=== PATIENT | female | born 1940 | race Caucasian/White ===

== ENCOUNTER 2017-08-10 05:41 | Inpatient (IN) | payer MEDICARE, OTHER ==
[2017-08-03 11:49] LABS: BASOPHILS % (AUTO) 0.6 % (0-1); EOSINOPHILS # (AUTO) 0.1 X10'3 (0-0.9); EOSINOPHILS % (AUTO) 1.7 % (0-6); LYMPHOCYTES # (AUTO) 1.8 X10'3 (1.1-4.8); LYMPHOCYTES % (AUTO) 30.1 % (21-51); MEAN CORPUSCULAR HEMOGLOBIN 31.7 PG (27.0-31.0); MEAN CORPUSCULAR HGB CONC 35.6 % (33.0-36.5); MEAN PLATELET VOLUME 6.6 FL (7.4-10.4); MONOCYTES # (AUTO) 0.4 X10'3 (0-0.9); MONOCYTES % (AUTO) 7.3 % (2-12); NEUTROPHILS # (AUTO) 3.6 X10'3 (1.8-7.7); NEUTROPHILS % (AUTO) 60.3 % (42-75); PRE OP HEMATOCRIT 39.8 % (35.0-45.0); PRE OP HEMOGLOBIN 14.2 g/dL (12.0-16.0); PRE OP PLATELET COUNT 286 X10'3 (140-440); RED BLOOD COUNT 4.47 X10'6 (4.20-5.60); RED CELL DISTRIBUTION WIDTH 13.5 % (11.5-14.5)
[2017-08-03 12:06] LABS: ALBUMIN 4.1 G/DL (3.4-5.0); ALBUMIN/GLOBULIN RATIO 1.2 (1.1-1.5); ALKALINE PHOSPHATASE 86 IU/L (46-116); BLOOD UREA NITROGEN 22 MG/DL (7-18); BUN/CREATININE RATIO 32.8 (6.6-38.0); CALCIUM 9.5 MG/DL (8.5-10.1); CHLORIDE 105 MMOL/L (99-107); CREATININE 0.67 MG/DL (0.40-0.90); PRE OP ALT 64 U/L (30-65); PRE OP ANION GAP 6 (8-16); PRE OP AST 35 U/L (10-37); PRE OP BILIRUB, TOTAL 0.4 MG/DL (0.0-1.0); PRE OP GLUCOSE 115 MG/DL (70-104); PRE OP POTASSIUM 4.1 MMOL/L (3.4-5.1); PRE OP SODIUM 143 MMOL/L (135-145); TOTAL CARBON DIOXIDE 31.6 MMOL/L (24-32); TOTAL PROTEIN 7.6 G/DL (6.4-8.2); eGFR 86 ML/MIN
[2017-08-04 09:06] LABS: CLARITY,URINE CLOUDY (Clear); COLOR,URINE YELLOW (Yellow); GLUCOSE, URINE NEGATIVE (Neg); KETONES,URINE NEGATIVE (Neg); LEUKOCYTE ESTERASE ,URINE LARGE (Neg); NITRITES, URINE POSITIVE (Neg); OCCULT BLOOD,URINE TRACE-INTACT (Neg); PH,URINE 7.5 (4.8-8.0); PROTEIN,URINE 30 mg/dl (Neg)
[2017-08-04 09:07] LABS: UA COLLECTION TYPE NON-SPECIFIED
[2017-08-04 09:13] LABS: BACTERIA,URINE 3+ /HPF (Neg); SQUAMOUS EPITHELIAL CELL,UR FEW /LPF (FEW); WBC,URINE TNTC /HPF (0-4)
[2017-08-04 09:14] LABS: RBC,URINE 0-2 /HPF (0-2)
[~2017-08-10] VITALS: Ht 170.2 cm; Wt 69.0 kg
[2017-08-10] VITALS (18 sets, daily range): BP systolic 99–138; BP diastolic 50–96
[~2017-08-10 05:41] MED LIST: ASPI-845 PO; DOCU-282 PO; ENAL10TA78 PO; MULT-38 PO; NAPR220C15 PO; PRIM250T48 PO; SIMV20TA5 PO; VENL-191 PO; acetaminophen 325mg tablet PO ONE; cefazolin/dext.iso 2gm/50ml 50 ML IV ONE; celeCOXIB 100mg capsule PO ONE; famotidine 20mg tablet PO ONE; gabapentin 300mg capsule PO ONE; metoclopramide 5 mg/ml inj IV ONE; ringers solution, lacted 1,000 ML IV SCH; tranexamic acid inj. 1,000 MG in normal saline 100ml IV soln 90 ML IV ONE; vancomycin inj 1,500 MG in normal saline 300ml IV soln IV ONE
[2017-08-10] MEDS ORDERED: LIDOcaine 1% (10mg/ml) 2ml vial ONE (06:26)
[2017-08-10] MEDS ORDERED: tetracaine 1% (10mg/ml) pres. free inj. ONE (07:11)
[2017-08-10] MEDS ORDERED: MIDAZolam 1mg/ml 10ml vial ONE (07:13)
[2017-08-10] MEDS ORDERED: fentaNYL/PF 50MCG/1 ML 2ML syringe ONE (07:14)
[2017-08-10] MEDS ORDERED: MORPHINE SULFATE/PF 0.5 MG/ML 10ML AMPUL ONE (07:14)
[2017-08-10] MEDS ORDERED: ringers solution, lacted 1,000 ML IV SCH (07:17)
[2017-08-10] MEDS ORDERED: hydrALAZINE 20mg/ml inj. IV PRN (07:20)
[2017-08-10] MEDS ORDERED: ondansetron/PF 4mg/2ml inj IV PRN ×3 (07:20→09:15)
[2017-08-10] MEDS ORDERED: fentaNYL/PF 50MCG/1 ML 2ML syringe IV PRN ×2 (07:20)
[2017-08-10] MEDS ORDERED: morphine 2 MG/ML inj. syringe IV PRN ×2 (07:20)
[2017-08-10] MEDS ORDERED: labetalol 5mg/ml 20ml inj. IV PRN (07:20)
[2017-08-10] MEDS ORDERED: diphenhydrAMINE 50 mg/ml inj IV PRN (08:10)
[2017-08-10] MEDS ORDERED: ketorolac trometh. 30mg/ml inj. ONE (08:11)
[2017-08-10] MEDS ORDERED: epiNEPHrine 1 mg/ml inj ONE (08:11)
[2017-08-10] MEDS ORDERED: vancomycin 1,000mg inj ONE (08:12)
[2017-08-10] MEDS ORDERED: cloNIDine hcl/PF 100mcg/ml inj ONE (08:12)
[2017-08-10] MEDS ORDERED: ROPIVAcaine 0.5% (5mg/ml) 30ml vial ONE (08:12)
[2017-08-10] MEDS ORDERED: ePHEDrine 50MG/ML INJ. ONE (08:16)
[2017-08-10] MEDS ORDERED: magnesium hydroxide 30ml (MOM) UD suspension PO PRN (09:15)
[2017-08-10] MEDS ORDERED: HYDROmorphone 1 mg/ml syringe IV PRN ×2 (09:15)
[2017-08-10] MEDS ORDERED: HYDROcodone/acetaminophen 10/325mg tab PO PRN (09:15)
[2017-08-10] MEDS ORDERED: bisacodyl 10mg suppository rectal RC PRN (09:15)
[2017-08-10] MEDS ORDERED: diphenhydrAMINE 25mg capsule PO PRN ×2 (09:15)
[2017-08-10] MEDS ORDERED: HYDROmorphone inj. 0.5 MG/0.5 ML DISP.SYRIN IV PRN (10:18)
[2017-08-10] MEDS: potassium cl 20mEq in 1/2 NS 1,000 ML IV SCH ×2 (13:25→17:11)
[2017-08-10] MEDS: gabapentin 300mg capsule PO SCH ×2 (17:22→20:22)
[2017-08-10] MEDS: cefazolin 1gm/NS 100mL 100 ML IV SCH (17:24)
[2017-08-10] MEDS ORDERED: vancomycin/NS 1 GM ADD-VANTAGE 250 ML IV SCH (20:00)
[2017-08-10] MEDS: venlafaxine 37.5mg tablet PO SCH (20:23)
[2017-08-10] MEDS: ascorbic acid 500mg tablet PO SCH (20:23)
[2017-08-10] MEDS: docusate sod 100mg capsule PO SCH (20:23)
[2017-08-10] MEDS: sennosides 8.6mg tablet PO SCH (20:24)
[2017-08-10] MEDS: lisinopril 5mg tablet PO SCH (20:25)
[2017-08-10] MEDS: atorvastatin 10mg tablet PO SCH (20:25)
[2017-08-10] MEDS ORDERED: aspirin 325mg tablet, delayed-release (Ecotrin) PO SCH (21:00)
[2017-08-11] VITALS (8 sets, daily range): BP systolic 108–152; BP diastolic 47–63
[2017-08-11] MEDS: cefazolin 1gm/NS 100mL 100 ML IV SCH (00:11)
[2017-08-11] MEDS: potassium cl 20mEq in 1/2 NS 1,000 ML IV SCH ×3 (00:14→17:12)
[2017-08-11 05:10] LABS: BASOPHILS % (AUTO) 0.4 % (0-1); EOSINOPHILS # (AUTO) 0.1 X10'3 (0-0.9); EOSINOPHILS % (AUTO) 1.5 % (0-6); HEMATOCRIT 33.9 % (35.0-45.0); HEMOGLOBIN 11.7 g/dl (12.0-16.0); LYMPHOCYTES # (AUTO) 1.5 X10'3 (1.1-4.8); LYMPHOCYTES % (AUTO) 26.5 % (21-51); MEAN CORPUSCULAR HEMOGLOBIN 31.6 PG (27.0-31.0); MEAN CORPUSCULAR HGB CONC 34.7 % (33.0-36.5); MEAN CORPUSCULAR VOLUME 91.3 FL (78-98); MEAN PLATELET VOLUME 7.7 FL (7.4-10.4); MONOCYTES # (AUTO) 0.6 X10'3 (0-0.9); MONOCYTES % (AUTO) 9.8 % (2-12); NEUTROPHILS # (AUTO) 3.5 X10'3 (1.8-7.7); NEUTROPHILS % (AUTO) 61.8 % (42-75); PLATELET COUNT 193 X10'3 (140-440); RED BLOOD COUNT 3.71 X10'6 (4.20-5.60); WHITE BLOOD COUNT 5.6 X10'3 (4.5-11.0)
[2017-08-11 06:34] LABS: ANION GAP 10 (8-16); CHLORIDE 108 MMOL/L (99-107); POTASSIUM 4.2 MMOL/L (3.5-5.1); SODIUM 143 MMOL/L (135-145); TOTAL CARBON DIOXIDE 24.7 MMOL/L (24-32)
[2017-08-11] MEDS: gabapentin 300mg capsule PO SCH ×3 (09:30→21:07)
[2017-08-11] MEDS: aspirin 325mg tablet PO SCH (09:30)
[2017-08-11] MEDS: multivitamins, therapeutics tablet PO SCH (09:30)
[2017-08-11] MEDS: ascorbic acid 500mg tablet PO SCH ×2 (09:30→21:07)
[2017-08-11] MEDS: primidone 50mg tablet PO SCH (09:31)
[2017-08-11] MEDS: acetaminophen 325mg tablet PO PRN (11:03)
[2017-08-11] MEDS: Protein Shake (high protein) 240ml (8oz) cup PO SCH ×2 (13:20→18:00)
[2017-08-11] MEDS: HYDROcodone/acetaminophen 10/325mg tab PO PRN ×2 (16:13→21:07)
[2017-08-11] MEDS: lisinopril 5mg tablet PO SCH (21:01)
[2017-08-11] MEDS: docusate sod 100mg capsule PO SCH (21:07)
[2017-08-11] MEDS: atorvastatin 10mg tablet PO SCH (21:07)
[2017-08-11] MEDS: sennosides 8.6mg tablet PO SCH (21:07)
[2017-08-11] MEDS: venlafaxine 37.5mg tablet PO SCH (21:07)
[2017-08-12] MEDS: potassium cl 20mEq in 1/2 NS 1,000 ML IV SCH (01:11)
[2017-08-12 06:00] VITALS: BP 129/52
[2017-08-12 06:51] LABS: BASOPHILS % (AUTO) 0.3 % (0-1); EOSINOPHILS # (AUTO) 0.1 X10'3 (0-0.9); EOSINOPHILS % (AUTO) 1.5 % (0-6); HEMATOCRIT 33.7 % (35.0-45.0); LYMPHOCYTES # (AUTO) 1.6 X10'3 (1.1-4.8); MEAN CORPUSCULAR HEMOGLOBIN 31.9 PG (27.0-31.0); MEAN CORPUSCULAR HGB CONC 35.4 % (33.0-36.5); MEAN PLATELET VOLUME 7.6 FL (7.4-10.4); MONOCYTES # (AUTO) 0.8 X10'3 (0-0.9); MONOCYTES % (AUTO) 11.4 % (2-12); NEUTROPHILS # (AUTO) 4.7 X10'3 (1.8-7.7); NEUTROPHILS % (AUTO) 64.8 % (42-75); PLATELET COUNT 194 X10'3 (140-440); RED BLOOD COUNT 3.75 X10'6 (4.20-5.60); RED CELL DISTRIBUTION WIDTH 13.5 % (11.5-14.5); WHITE BLOOD COUNT 7.3 X10'3 (4.5-11.0)
[2017-08-12] MEDS: HYDROcodone/acetaminophen 10/325mg tab PO PRN ×2 (07:24→23:19)
[2017-08-12] MEDS: primidone 50mg tablet PO SCH (09:25)
[2017-08-12] MEDS: multivitamins, therapeutics tablet PO SCH (09:25)
[2017-08-12] MEDS: gabapentin 300mg capsule PO SCH ×3 (09:25→20:39)
[2017-08-12] MEDS: ascorbic acid 500mg tablet PO SCH ×2 (09:25→20:37)
[2017-08-12] MEDS: aspirin 325mg tablet PO SCH (09:25)
[2017-08-12 10:00] VITALS: BP 113/39
[2017-08-12] MEDS: Protein Shake (high protein) 240ml (8oz) cup PO SCH ×3 (12:46→18:00)
[2017-08-12] MEDS: acetaminophen 325mg tablet PO PRN (12:47)
[2017-08-12 18:00] VITALS: BP 110/55
[2017-08-12] MEDS: sennosides 8.6mg tablet PO SCH (20:37)
[2017-08-12] MEDS: docusate sod 100mg capsule PO SCH (20:37)
[2017-08-12] MEDS: venlafaxine 37.5mg tablet PO SCH (20:38)
[2017-08-12] MEDS: lisinopril 5mg tablet PO SCH (20:38)
[2017-08-12] MEDS: atorvastatin 10mg tablet PO SCH (20:39)
[2017-08-12 22:00] VITALS: BP 125/64
[2017-08-13 05:56] VITALS: BP 97/56
[2017-08-13 06:34] LABS: BASOPHILS % (AUTO) 0.3 % (0-1); EOSINOPHILS # (AUTO) 0.1 X10'3 (0-0.9); EOSINOPHILS % (AUTO) 1.8 % (0-6); HEMATOCRIT 32.4 % (35.0-45.0); HEMOGLOBIN 11.3 g/dl (12.0-16.0); LYMPHOCYTES # (AUTO) 1.9 X10'3 (1.1-4.8); LYMPHOCYTES % (AUTO) 24.1 % (21-51); MEAN CORPUSCULAR HEMOGLOBIN 31.9 PG (27.0-31.0); MEAN CORPUSCULAR HGB CONC 34.9 % (33.0-36.5); MEAN CORPUSCULAR VOLUME 91.4 FL (78-98); MONOCYTES # (AUTO) 0.8 X10'3 (0-0.9); MONOCYTES % (AUTO) 10.7 % (2-12); NEUTROPHILS % (AUTO) 63.1 % (42-75); PLATELET COUNT 219 X10'3 (140-440); RED BLOOD COUNT 3.54 X10'6 (4.20-5.60); RED CELL DISTRIBUTION WIDTH 13.2 % (11.5-14.5)
[2017-08-13 07:13] VITALS: BP 107/56
[2017-08-13] MEDS: aspirin 325mg tablet PO SCH (08:03)
[2017-08-13] MEDS: gabapentin 300mg capsule PO SCH ×2 (08:03→12:34)
[2017-08-13] MEDS: ascorbic acid 500mg tablet PO SCH (08:03)
[2017-08-13] MEDS: multivitamins, therapeutics tablet PO SCH (08:04)
[2017-08-13] MEDS: Protein Shake (high protein) 240ml (8oz) cup PO SCH ×2 (08:04→12:36)
[2017-08-13] MEDS: primidone 50mg tablet PO SCH (08:04)
[2017-08-13] MEDS: HYDROcodone/acetaminophen 10/325mg tab PO PRN (12:34)
== END 2017-08-13 13:45 | DRG 470 ==
LOC: PAS IN 05:41 → EDSTATUS 07:30 → ORTHO 4S 10:15 → EDSTATUS 13:00
PROVIDERS: ADMIT Orthopaedic Surgery; ATTEND Orthopaedic Surgery
PROC: 0SRB06Z Replacement of Left Hip Joint with Oxidized Zirconium on Polyethylene Synthetic Substitute, Open Approach (ICD-10-PCS; principal; 2017-08-10 07:15)
DX: M16.0 Bilateral primary osteoarthritis of hip (principal); D62 Acute posthemorrhagic anemia; E78.5 Hyperlipidemia, unspecified; I10 Essential (primary) hypertension; R25.1 Tremor, unspecified; M19.012 Primary osteoarthritis, left shoulder; M75.122 Complete rotator cuff tear or rupture of left shoulder, not specified as traumatic; F32.9 Major depressive disorder, single episode, unspecified; Z90.710 Acquired absence of both cervix and uterus; Z79.82 Long term (current) use of aspirin; Z88.5 Allergy status to narcotic agent
CPT/HCPCS: 36415; 71046; 72170; 80051; 80053; 81001; 85025; 86885; 86900; 86901; 87070; 87077; 87088; 87186; 93005; 97110; 97116; 97161; 97530; A4615; A6449; A7000; C1758; C1776; J0171; J0690; J0735; J1170; J1885; J2250; J2274; J2765; J2795; J3010; J3370; J3490; J7030; J7120

== ENCOUNTER 2019-04-25 06:17 | Emergency (ER) | payer MEDICARE, OTHER ==
[~2019-04-25 06:17] MED LIST changes: -PRIM250T48 PO; +PRIM250T8 PO; +SIMV-42 PO; -SIMV20TA5 PO; -acetaminophen 325mg tablet PO ONE; -cefazolin/dext.iso 2gm/50ml 50 ML IV ONE; -celeCOXIB 100mg capsule PO ONE; -famotidine 20mg tablet PO ONE; -gabapentin 300mg capsule PO ONE; -metoclopramide 5 mg/ml inj IV ONE; -ringers solution, lacted 1,000 ML IV SCH; -tranexamic acid inj. 1,000 MG in normal saline 100ml IV soln 90 ML IV ONE; -vancomycin inj 1,500 MG in normal saline 300ml IV soln IV ONE
[2019-04-25 07:40] LABS: HEMATOCRIT 42.2 % (35.0-45.0); HEMOGLOBIN 14.9 g/dl (12.0-16.0); MEAN CORPUSCULAR HEMOGLOBIN 32.3 PG (27.0-31.0); MEAN CORPUSCULAR HGB CONC 35.3 g/dL (33.0-36.5); MEAN CORPUSCULAR VOLUME 91.5 FL (78-98); RED BLOOD COUNT 4.61 X10'6 (4.20-5.60); RED CELL DISTRIBUTION WIDTH 13.1 % (11.5-14.5)
[2019-04-25 07:41] LABS: BASOPHILS % (AUTO) 0.3 % (0-1); EOSINOPHILS % (AUTO) 0.2 % (0-6); LYMPHOCYTES % (AUTO) 10 % (21-51); MEAN PLATELET VOLUME 7.4 FL (7.4-10.4); MONOCYTES # (AUTO) 0.5 X10'3 (0-0.9); MONOCYTES % (AUTO) 5.1 % (2-12); NEUTROPHILS # (AUTO) 8.5 X10'3 (1.8-7.7); NEUTROPHILS % (AUTO) 84.4 % (42-75); PLATELET COUNT 275 X10'3 (140-440)
[2019-04-25 07:42] LABS: ALANINE AMINOTRANSFERASE 21 U/L (12-78); ALBUMIN 4.1 G/DL (3.4-5.0); ALKALINE PHOSPHATASE 92 IU/L (46-116); ANION GAP 9 (8-16); ASPARTATE AMINO TRANSFERASE 20 U/L (10-37); BILIRUBIN,TOTAL 0.5 MG/DL (0.1-1.0); BLOOD UREA NITROGEN 29 MG/DL (7-18); BUN/CREATININE RATIO 35.8 (6.6-38.0); CALCIUM 10.1 MG/DL (8.5-10.1); CHLORIDE 107 MMOL/L (99-107); CREATINE KINASE 68 U/L (26-192); CREATININE 0.81 MG/DL (0.40-0.90); GLUCOSE 119 MG/DL (70-104); MAGNESIUM 1.9 MG/DL (1.5-2.4); POTASSIUM 4.1 MMOL/L (3.5-5.1); SODIUM 142 MMOL/L (135-145); TOTAL PROTEIN 8.2 G/DL (6.4-8.2); TROPONIN I < 0.04 NG/ML (0.0-0.05); eGFR 69 ML/MIN
[2019-04-25 07:43] LABS: PARTIAL THROMBOPLASTIN TIME 24 SECONDS (22-32)
== END 2019-04-25 07:53 | disposition short-term general hospital (02) ==
LOC: ER 06:17
DX: I61.9 Nontraumatic intracerebral hemorrhage, unspecified (principal); E78.00 Pure hypercholesterolemia, unspecified; I10 Essential (primary) hypertension; Z88.5 Allergy status to narcotic agent; Z79.82 Long term (current) use of aspirin; Z79.899 Other long term (current) drug therapy
CPT/HCPCS: 36415; 70450; 80053; 82550; 83605; 83735; 83880; 84484; 85025; 85610; 85730; 87040; 93005; 99285